=== PATIENT | female | born 1990 | race Caucasian/White ===

== ENCOUNTER 2019-10-11 12:24 | Observation (INO) ==
[2019-10-11 14:16] LABS: Estimated Average Glucose 103 mg/dl
[2019-10-11] MEDS ORDERED: Acetaminophen 325 MG TABLET PO PRN (14:27)
[2019-10-11] MEDS ORDERED: haloperidoL 5 MG TABLET PO PRN (14:27)
[2019-10-11] MEDS ORDERED: traZODone 50 MG TABLET PO PRN (14:27)
[2019-10-11] MEDS ORDERED: Haloperidol Lactate 5 MG/ML VIAL IM PRN (14:27)
[2019-10-11] MEDS ORDERED: Mag Hydrox/Al Hydrox/Simeth 30 ML UDC PO PRN (14:27)
[2019-10-11] MEDS ORDERED: *HR* LORazepam 1 MG TABLET PO PRN (14:27)
[2019-10-11] MEDS ORDERED: hydrOXYzine pamoate 25 MG CAPSULE PO PRN (14:27)
[2019-10-11] MEDS ORDERED: MOM Conc 10 ML UD.LIQ PO PRN (14:27)
[2019-10-11] MEDS ORDERED: *HR* LORazepam 2 MG/ML VIAL IM PRN (14:27)
[2019-10-11] MEDS: rOPINIRole 0.25 MG TABLET PO SCH ×2 (16:32→21:06)
[2019-10-11] MEDS: Nicotine 21 MG PATCH.TD24 TD SCH (16:34)
[2019-10-12 10:05] VITALS: BP 123/85
[2019-10-12] MEDS: Nicotine 21 MG PATCH.TD24 TD SCH (10:06)
[2019-10-12] MEDS ORDERED: rOPINIRole 1 MG TABLET PO SCH (21:00)
[2019-10-12] MEDS ORDERED: QUEtiapine Fumarate 25 MG TABLET PO SCH (21:00)
[2019-10-13] MEDS ORDERED: lamoTRIgine 25 MG TABLET PO SCH (09:00)
== END 2019-10-12 14:55 ==
LOC: EMEROOARM 12:24 → 1ANU 14:26 → INTOOBSV 14:27 → 1ANU 14:38
PROVIDERS: ADMIT Psychiatry & Neurology Psychiatry; ATTEND Psychiatry & Neurology Psychiatry